=== PATIENT | male | born 1995 | race Caucasian/White ===

== ENCOUNTER → 2017-01-19 | Outpatient (REF) | payer OTHER ==
[2017-01-19 20:18] LABS: NON PROGRESSIVE MOTILITY (c) 10 %; PROGRESSIVE MOTILITY (a) 21 % (>=32); TOTAL MOTILITY 31 % (>=40)
[2017-01-19 20:19] LABS: % NORMAL FORMS 4 % (>=4); IMMOTILITY 69 %; SPERM# 78.3 M/Ejac (>=39); TOTAL FUNCTIONAL 1.6 M/Ejac.; TOTAL PROGRESSIVE SPERM 16.4 M/Ejac.
== END ==
LOC: M LAB REF 17:38
PROVIDERS: ATTEND Obstetrics & Gynecology
DX: N46.9 Male infertility, unspecified (principal)

== ENCOUNTER → 2017-01-26 | Outpatient (CLI) | payer OTHER ==
--- NOTE | 2017-01-27 09:39 | REP ---
ULTRASOUND RIGHT CHEST WALL: Ultrasound right chest wall performed in the region of the right pectoralis muscle where the patient complains of pain superolaterally. No abnormal echogenicity is seen in the pectoralis muscle. There is no definite tear. No fluid collection is seen. There is no sonographic evidence of a mass. A more complete evaluation may be made with MRI. Signed by Damien Menon MD 01/27/2017 05:14 P
== END ==
LOC: M RAD 10:08
PROVIDERS: ATTEND Physician Assistant Surgical
DX: S29.011A Strain of muscle and tendon of front wall of thorax, initial encounter (principal); X58.XXXA Exposure to other specified factors, initial encounter; Y92.9 Unspecified place or not applicable; Y93.9 Activity, unspecified

== ENCOUNTER → 2017-03-20 | Outpatient (REF) | payer OTHER ==
[2017-03-20 15:17] LABS: SPERM# 87.8 M/Ejac (>=39); TOTAL FUNCTIONAL 8.3 M/Ejac.; TOTAL PROGRESSIVE SPERM 36.6 M/Ejac.
== END ==
LOC: M LAB REF 14:58
PROVIDERS: ATTEND Obstetrics & Gynecology
DX: N46.8 Other male infertility (principal)